=== PATIENT | female | born 1965 | race Caucasian/White ===

== ENCOUNTER 2017-03-09 05:30 | Inpatient (IN) | payer BC ==
[2017-03-05 13:47] LABS: BASOPHILS # (AUTO) 0.1 K/uL (0.0-0.2); BASOPHILS % (AUTO) 0.8 % (0.0-2.0); EOSINOPHILS # (AUTO) 0.1 K/uL (0.0-0.4); EOSINOPHILS % (AUTO) 1.9 % (0.0-4.0); HEMATOCRIT 42.5 % (36-48); LYMPHOCYTES # (AUTO) 2.2 K/uL (1.0-5.5); LYMPHOCYTES % (AUTO) 32.4 % (20.5-51.5); MEAN CORPUSCULAR HEMOGLOBIN 31 pg (27-31); MEAN CORPUSCULAR HGB CONC 33 % (32-36); MEAN CORPUSCULAR VOLUME 93 fL (79.0-98.0); MONOCYTES # (AUTO) 0.4 K/uL (0.0-1.0); MONOCYTES % (AUTO) 5.8 % (1.7-9.3); NEUTROPHILS # (AUTO) 4.1 K/uL (1.8-7.7); NEUTROPHILS % (AUTO) 59.1 % (40.0-70.0); PLATELET COUNT (AUTO) 342 K/uL (130-430); RED BLOOD CELL COUNT(AUTO) 4.57 MIL/uL (4.2-6.2); RED CELL DISTRIBUTION WIDTH 13.2 % (9.0-15.0); WHITE BLOOD COUNT (AUTO) 6.9 K/uL (4.8-10.8)
[2017-03-05 14:00] LABS: ALBUMIN 3.5 g/dL (3.4-4.8); CALCIUM 8.3 mg/dL (8.4-11.0); CREATININE 0.64 mg/dL (0.55-1.30); POTASSIUM 3.3 mmol/L (3.5-5.1); TOTAL BILIRUBIN 0.3 mg/dL (0.0-1.0); TOTAL PROTEIN, SERUM 7.6 g/dL (6.4-8.3)
[~2017-03-09] VITALS: Ht 154.9 cm; Wt 81.6 kg
[2017-03-09] VITALS (7 sets, daily range): BP systolic 98–128
[2017-03-09] MEDS ORDERED: CEFAZOLIN 2 GM IVPB PREMIX 50 ML IV ONE (07:10)
[2017-03-09] MEDS ORDERED: IBUPROFEN 600 MG TABLET PO PRN (07:30)
[2017-03-09] MEDS ORDERED: ONDANSETRON HCL 4 MG/2 ML VIAL IVP PRN ×2 (07:30→08:15)
[2017-03-09] MEDS ORDERED: LR 1,000 ML IV SCH (08:06)
[2017-03-09] MEDS ORDERED: HYDROmorphone 2 MG/ML VIAL IVP PRN ×2 (08:15)
[2017-03-09] MEDS ORDERED: MEPERIDINE HCL/PF 25 MG/ML DISP.SYRIN IVP PRN ×2 (08:15)
[2017-03-09] MEDS ORDERED: HYDROmorphone 1 MG INJ. 1 MG/ML AMPUL IVP PRN (08:15)
[2017-03-09] MEDS ORDERED: HYDROmorphone 1 MG INJ. 1 MG/ML AMPUL ONE (09:54)
[2017-03-09] MEDS: ACETAMINOPHEN/CODEINE 300 MG-30 MG TABLET PO PRN (13:45)
[2017-03-09] MEDS ORDERED: IBUP-1480 PO (15:09)
[2017-03-09] MEDS ORDERED: AMLO1CAP5 PO (15:09)
[2017-03-09] MEDS ORDERED: HYDR-1189 PO (15:09)
[2017-03-09] MEDS ORDERED: OMEP40CA33 PO (15:09)
[2017-03-09] MEDS: MORPHINE 4 MG/ML INJ. SYRINGE IVP PRN (20:38)
[2017-03-10] VITALS (7 sets, daily range): BP systolic 121–141
[2017-03-10] MEDS: MORPHINE 4 MG/ML INJ. SYRINGE IVP PRN (03:08)
[2017-03-10 06:39] LABS: BASOPHILS % (AUTO) 0.1 % (0.0-2.0); EOSINOPHILS % (AUTO) 0.1 % (0.0-4.0); HEMOGLOBIN 10.7 g/dL (12.0-16.0); LYMPHOCYTES # (AUTO) 1.9 K/uL (1.0-5.5); LYMPHOCYTES % (AUTO) 18.8 % (20.5-51.5); MEAN CORPUSCULAR HEMOGLOBIN 31 pg (27-31); MEAN CORPUSCULAR HGB CONC 34 % (32-36); MEAN CORPUSCULAR VOLUME 93 fL (79.0-98.0); MONOCYTES # (AUTO) 1.3 K/uL (0.0-1.0); MONOCYTES % (AUTO) 12.8 % (1.7-9.3); NEUTROPHILS # (AUTO) 6.9 K/uL (1.8-7.7); NEUTROPHILS % (AUTO) 68.2 % (40.0-70.0); PLATELET COUNT (AUTO) 290 K/uL (130-430); RED BLOOD CELL COUNT(AUTO) 3.44 MIL/uL (4.2-6.2); RED CELL DISTRIBUTION WIDTH 13.4 % (9.0-15.0); WHITE BLOOD COUNT (AUTO) 10.1 K/uL (4.8-10.8)
[2017-03-10] MEDS: ACETAMINOPHEN/CODEINE 300 MG-30 MG TABLET PO PRN ×2 (17:05→22:49)
[2017-03-11] MEDS: MORPHINE 4 MG/ML INJ. SYRINGE IVP PRN (03:23)
[2017-03-11 04:53] VITALS: BP_SYST 121
[2017-03-11] MEDS ORDERED: METOCLOPRAMIDE HCL 10 MG/2 ML VIAL IVP PRN (06:15)
[2017-03-11] MEDS ORDERED: SIMETHICONE 80 MG TAB.CHEW PO ONE (06:15)
[2017-03-11 08:00] VITALS: BP_SYST 146
[2017-03-11] MEDS: ACETAMINOPHEN/CODEINE 300 MG-30 MG TABLET PO PRN (08:08)
[2017-03-11 12:14] VITALS: BP_SYST 103
[2017-03-11 12:43] VITALS: BP_SYST 132
== END 2017-03-11 13:51 | disposition home or self-care (01) | DRG 743 ==
LOC: SMU 05:30
PROVIDERS: ADMIT Obstetrics & Gynecology; ATTEND Obstetrics & Gynecology
PROC: 0UTC0ZZ Resection of Cervix, Open Approach (ICD-10-PCS; 2017-03-09)
PROC: 0UT70ZZ Resection of Bilateral Fallopian Tubes, Open Approach (ICD-10-PCS; 2017-03-09)
PROC: 0UT20ZZ Resection of Bilateral Ovaries, Open Approach (ICD-10-PCS; 2017-03-09)
PROC: 0UT90ZZ Resection of Uterus, Open Approach (ICD-10-PCS; principal; 2017-03-09 07:30)
DX: N83.209 Unspecified ovarian cyst, unspecified side (principal); G89.29 Other chronic pain; N95.0 Postmenopausal bleeding
CPT/HCPCS: 36415; 80053; 84702-TC; 84703; 85025; 86886; 86900; 86901; 87081; 88108; 88305; 88307; 94010; J0690; J1170; J2270; J2405; J7120